=== PATIENT | female | born 1945 | race Caucasian/White ===

== ENCOUNTER 2019-11-18 16:18 | Emergency (ER) | payer MEDICARE, SELFPAY ==
[2019-11-18 16:32] VITALS: BP 115/64; PULSE 101; RESP 18; TEMP 40; O2SAT 98
--- NOTE | 2019-11-18 16:32 | ED.URI ---
HPI - URI/Sore Throat General Chief Complaint: Upper Respiratory Infection Stated Complaint: Fever Time Seen by Provider: 11/18/19 16:32 History of Present Illness HPI Narrative: Amanda Chadwick is a 74 yo female with a PMH of breast cancer for which she is taking immunosuppression therapy, gout, depression, who was seen by her PCP on Wednesday and diagnosed with flu and started on Tamiflu. She comes to the [facility] [place] [facility] today because her temperature is over 104 and had sore throat. She appears dehydrated on triage Related Data Home Medications Medication Instructions Recorded Confirmed albuterol sulfate [ProAir HFA] 2 puff INHALATION QID 11/18/19 11/18/19 allopurinol 100 mg DAILY 11/18/19 11/18/19 anastrozole 1 mg DAILY 11/18/19 11/18/19 calcitriol 25 mcg DAILY 11/18/19 11/18/19 citalopram 20 mg DAILY 11/18/19 11/18/19 oseltamivir 75 mg BID 11/18/19 11/18/19 Allergies Allergy/AdvReac Type Severity Reaction Status Date / Time No Known Allergies Allergy Verified 11/18/19 17:02 Review of Systems Review of Systems: Narrative: CONSTITUTIONAL: has fever, chills, sweats. EYES: Denies visual changes, redness, discharge. ENT: Denies rhinorrhea, hascongestion, has sore throat, no otalgia. CARDIOVASCULAR: Denies chest pain, palpitations, edema. RESPIRATORY: Denies dyspnea, wheezing, very littlecough GASTROINTESTINAL: Denies abdominal pain, nausea, vomiting, diarrhea. GENITOURINARY: Denies dysuria, hematuria, abnormal discharge concentrated urine SKIN: Denies rash or itching. MUSCULOSKELETAL: Denies acute back pain, joint pain, or myalgia. NEUROLOGIC: Denies numbness, or focal weakness. PSYCHIATRIC: Denies anxiety or depression. [facility], [facility] Past Medical History Medical History Breast cancer Family History Family History Father Family history of obesity Family history of alcoholism Family history of diabetes mellitus in first degree relative Family history of hearing loss Family history of heart disease in male family member before age 55, Onset Age: 86 Patient's father is Mother Family history of obesity Family history of mental disorder Asthma Patient's mother is Depression Family history of diabetes mellitus in first degree relative Sibling Depression Patient's sister is in good health Family history of alcoholism Patient's brother is Grandparent Family history of heart disease in male family member before age 55 Social History Social History Alcohol intake: current Gender identity (if verbalized by the patient): Female Exam Narrative: Exam Narrative: GENERAL: This is a well-nourished, well-developed patient, in no apparent distress. HEAD: normocephalic, atraumatic. EYES: Sclera clear/white. Vision is grossly intact. EARS: External ears normal, auditory canals clear and without drainage, TMs normal without perforation. Hearing grossly intact. NOSE: External nose normal with no obvious nasal discharge, nares without redness, no rhinorrhea. THROAT: Mucous membranes moist, posterior pharynx erythema NECK: Neck supple, non-tender without lymphadenopathy, CARDIOVASCULAR: Tachycardic rate and rhythm without murmurs, gallops, or rubs. RESPIRATORY: Clear to auscultation. Breath sounds equal bilaterally. No wheezes, rales, or rhonchi. GASTROINTESTINAL: Abdomen soft, non-tender, SKIN: warm, intact with no suspicious lesions or rash, good texture and turgor. NEURO: awake, alert, and oriented to person, place and time. There were no obvious focal neurologic abnormalities. Steady gait EXTREMITIES: Normal range of motion. No edema. BACK: Nontender without deformity or crepitance. No flank tenderness. Course Course Emergency Course: 600 mg ibuprofen given for fever along with oral fluids; predn
[2019-11-18 16:44] VITALS: TEMP 40
[2019-11-18] MEDS: IBUPROFEN 600 MG TABLET PO (16:44)
--- NOTE | 2019-11-18 17:14 | PC.NURSE ---
Given 16 oz of H2O and a popsicle--tolerated both well.
[2019-11-18] MEDS: predniSONE 20 MG TABLET 60 MG PO (17:40)
[2019-11-18 18:14] VITALS: TEMP 38.1
== END 2019-11-18 18:14 | disposition home or self-care (01) ==
PROVIDERS: Emergency Provider Nurse Practitioner; PCP Family Medicine
DX: J11.1 Influenza due to unidentified influenza virus with other respiratory manifestations (principal); R50.81 Fever presenting with conditions classified elsewhere; Z85.3 Personal history of malignant neoplasm of breast; N18.9 Chronic kidney disease, unspecified
CPT/HCPCS: 87081; 87880; 99213; A9270; G0463; J7512

== ENCOUNTER 2025-05-09 10:52 | Emergency (ER) | payer MEDICARE, SELFPAY ==
--- NOTE | ~2025-05-09 | XR_ITS ---
HISTORY: fall COMPARISON: None TECHNIQUE: 3 views of the left wrist were performed. FINDINGS: Cortical irregularity is identified within the distal metaphysis of the distal radius for which a non displaced fracture is suspected. Cortical irregularity is also identified within the ulna styloid pro cess, also possibly representing an acute fracture. The carpal arcs are intact. Mild radiocarpal joint space narrowing with sclerosis of the distal radius is present. Significant degenerative disease within the first carpometacarpal joint space consistent with osteoar thritis. The remaining visualized joint spaces are otherwise preserved. Bone mineralization is age-appropriate. Soft tissue swelling is suspected overlying the more dorsal surface of the left wrist. No radiopaque foreign body is identified. IMPRESSION: Clinical irregularity within the distal metaphysis of the radius as well as the ulna styl oid process for which nondisplaced fractures are suspected. Degenerative disease is also noted. Reviewed, dictated and finalized at location A. IMPRESSION: Clinical irregularity within the distal metaphysis of the radius as well as the ulna styloid process for which nondisplaced fractures are suspecte d. Degenerative disease is also noted.
--- NOTE | 2025-05-09 10:54 | ED.GENADULT ---
HPI - General Adult General Chief complaint: Extremity Injury, Upper Stated complaint: fall Time Seen by Provider: 05/09/25 10:54 Source: patient Mode of arrival: ambulatory Limitations: no limitations History of Present Illness HPI narrative: Pt is a 79 y/o female presenting with c/o fall. Pt reports FOOSH last night while walking around her house in the dark, reporting she tripped over a tote. Describes a hyperflexion of the L. wrist. Denies paresthesias to the LUE. No hx of previous fracture to the LUE. Denies striking her head. Denies neck or back pain. Denies LOC. Denies feeling dizzy or lightheaded prior to fall. No tx initiated [employer]OUNT[employer]. No additional complaints. Related Data Home Medications ?Medication ?Instructions ?Recorded ?Confirmed ?Last Taken ?Type albuterol sulfate 90 mcg/actuation 2 puff inhalation QID 11/18/19 11/18/19 Unknown History aerosol inhaler (ProAir HFA) allopurinol 100 mg tablet 100 mg DAILY 11/18/19 11/18/19 Unknown History anastrozole 1 mg tablet 1 mg DAILY 11/18/19 11/18/19 Unknown History calcitriol 0.25 mcg capsule 25 mcg DAILY 11/18/19 11/18/19 Unknown History citalopram 20 mg tablet 20 mg DAILY 11/18/19 11/18/19 Unknown History Allergies Allergy/AdvReac Type Severity Reaction Status Date / Time No Known Allergies Allergy Verified 05/09/25 10:55 Review of Systems Review of Systems: CONSTITUTIONAL: Denies body aches, fever, chills, or sweats. EYES: Denies visual changes, redness, or discharge. ENT: Denies rhinorrhea, congestion, sore throat, or otalgia. CARDIOVASCULAR: Denies chest pain, palpitations, or edema. RESPIRATORY: Denies cough or dyspnea. GASTROINTESTINAL: Denies abdominal pain, nausea, vomiting, or diarrhea. GENITOURINARY: Denies dysuria or hematuria. SKIN: Denies rash, itching, or wounds. MUSCULOSKELETAL: Reports L. wrist pain. Denies neck or back pain. NEUROLOGIC: Denies headache, numbness, tingling, or weakness. PSYCH: Denies depression or anxiety. [facility] Past Medical History Medical History (Updated 05/09/25 @ 11:49 by Joel Luna APRN) Breast cancer Family History Family History Father Family history of obesity Family history of alcoholism Family history of diabetes mellitus in first degree relative Family history of hearing loss Family history of heart disease in male family member before age 55, Onset Age: 86 Patient's father is Mother Family history of obesity Family history of mental disorder Asthma Patient's mother is Depression Family history of diabetes mellitus in first degree relative Sibling Depression Patient's sister is in good health Family history of alcoholism Patient's brother is Grandparent Family history of heart disease in male family member before age 55 Social History Social History Alcohol intake: current Gender identity (if verbalized by the patient): Female Exam Narrative: GENERAL: Well-appearing, well-nourished, and in no acute distress. HEAD: Normocephalic, atraumatic. EYES: EOMI. No redness or drainage. Conjunctivae normal. ENT: Mucous membranes pink and moist. NECK: Normal AROM. Supple. CHEST: No respiratory distress. HEART: Regular rate . Normal peripheral pulses. EXTREMITIES: edema noted to the L. wrist, ecchymosis noted to the dorsal and palmar aspects of the L. wrist. the L. wrist is TTP. Pain with supination and pronation of the L wrist. +DNVI, +FROM of the LUE. SKIN: Warm, dry, no rash. Capillary refill normal. Normal skin turgor. NEURO: No focal deficits. Alert and oriented x3. Gait steady. PSYCH: Normal affect. No signs of depression or anxiety. Course Course Level of Care: Express Care Visit Vital Signs Vital signs: Vital Signs Temperature 98.0 F 05/09/25 11:18 Pulse Rate 75 05/09/25 11:18 Respiratory Rate 16 05/09/25 11:18 Blood Pressure 135/68 05/09/25 11:18 Pulse Oximetry 100 05/09/25 11:18 Oxygen Delivery Room Air 05/09/25 11:18 Temperature 98.0 F 05/09/25 11:18 Pulse Rate 75 05/09/25 11:18 Respiratory Rate 16 05/09/25 11:18 Blood Pressure 135/68 05/09/25 11:18 Pulse Oximetry 100 05/09/25 11:18 Oxygen Delivery Room Air 05/09/25 11:18 Procedures Orthopedic Splinting/Casting Injury #1: Splinting/Casting Date: 05/09/25 Splinting/Casting Time: 11:54 Side: left Upper Extremity Injury Location: wrist Upper Extremity Immobilizer: sling/shoulder immobilizer and volar splint Splint: customized in ED OCL: volar Pre-Procedure Neuro Vascular Exam: normal Post-Procedure Neuro Vascular Exam: normal Medical Decision Making Vital Signs Vital Signs: Vital Signs Temperature 98.0 F 05/09/25 11:18 Pulse Rate 75 05/09/25 11:18 Respiratory Rate 16 05/09/25 11:18 Blood Pressure 135/68 05/09/25 11:18 Pulse Oximetry 100 05/09/25 11:18 Oxygen Delivery Room Air 05/09/25 11:18 Temperature 98.0 F 05/09/25 11:18 Pulse Rate 75 05/09/25 11:18 Respiratory Rate 16 05/09/25 11:18 Blood Pressure 135/68 05/09/25 11:18 Pulse Oximetry 100 05/09/25 11:18 Oxygen Delivery Room Air 05/09/25 11:18 Imaging Data Attestation: I personally reviewed and interpreted this imaging study as follows: Discharge Plan Discharge Clinical Impression: Elevated blood pressure reading in office without diagnosis of hypertension, Fall on same level from tripping Closed fracture distal radius and ulna Qualifiers: Encounter type: initial encounter Laterality: left Qualified Code(s): S52.502A - Unspecified fracture of the lower end of left radius, initial encounter for closed fracture Patient Disposition: Home Condition: Stable Instructions: Arm Fracture in Adults (DC) Additional Instructions: You can take Tylenol and ibuprofen per the package instructions. You may take both of these medications together. Go straight to ER should your symptoms become worse or should any new symptoms develop Patient Language: Romansh Prescriptions: No Action anastrozole 1 mg tablet 1 mg DAILY allopurinol 100 mg tablet 100 mg DAILY citalopram 20 mg tablet 20 mg DAILY albuterol sulfate [ProAir HFA] 90 mcg/actuation HFA aerosol inhaler 2 puff INHALATION QID calcitriol 0.25 mcg capsule 25 mcg DAILY Follow-up/Referrals: Candace,MD Susannah [Primary Care Provider] - 05/10/25 Eleazar Ingram MD [Physician] - 05/09/25 (call today to schedule appt) Time of Disposition: 11:47
[2025-05-09 11:18] VITALS: BP 135/68; PULSE 75; RESP 16; TEMP 36.7; O2SAT 100
== END 2025-05-09 12:23 | disposition home or self-care (01) ==
PROVIDERS: Emergency Provider Registered Nurse; PCP Internal Medicine
DX: R03.0 Elevated blood-pressure reading, without diagnosis of hypertension (principal); S52.502A Unspecified fracture of the lower end of left radius, initial encounter for closed fracture; W01.0XXA Fall on same level from slipping, tripping and stumbling without subsequent striking against object, initial encounter; Z85.3 Personal history of malignant neoplasm of breast
CPT/HCPCS: 29125; 73110; 99214; A4565; G0463